=== PATIENT | female | born 1965 | race Caucasian/White ===

== ENCOUNTER → 2020-07-11 | Outpatient (CLI) | payer BC, OTHER ==
[~2020-07-11] MED LIST: ADDE20TA PO; BUPR150T3 PO; CHLO25TA PO; LEVO150T7 PO; SYMB16INH INH; VALS40TA9 PO; VENTAER INH; XANA0.5T PO
[2020-07-11 12:42] LABS: HEMATOCRIT 44.8 % (36.0-47.0); HEMOGLOBIN 14.7 g/dl (12.0-15.5); MEAN CORPUSCULAR HEMOGLOBIN 31.3 pg (27.0-33.0); MEAN CORPUSCULAR HGB CONC 32.8 g/dl (32.0-36.5); MEAN CORPUSCULAR VOLUME 95.3 fl (80.0-96.0); PLATELET COUNT, AUTOMATED 397 10^3/uL (150-450); WHITE BLOOD COUNT 7.3 10^3/uL (4.0-10.0)
[2020-07-11 12:53] LABS: INR 0.92; PROTHROMBIN TIME 12.5 SECONDS (12.5-14.3)
[2020-07-11 13:10] LABS: ALBUMIN 3.9 GM/DL (3.2-5.2); ALT/SGPT 25 U/L (12-78); BILIRUBIN,TOTAL 0.2 MG/DL (0.2-1.0); BLOOD UREA NITROGEN 18 MG/DL (7-18); CALCIUM LEVEL 9.9 MG/DL (8.5-10.1); CARBON DIOXIDE LEVEL 31 MEQ/L (21-32); CHLORIDE LEVEL 103 MEQ/L (98-107); CREATININE FOR GFR 0.79 MG/DL (0.55-1.30); GLOMERULAR FILTRATION RATE > 60.0 (>51); GLUCOSE, FASTING 94 MG/DL (70-100); POTASSIUM SERUM 3.8 MEQ/L (3.5-5.1); SODIUM LEVEL 140 MEQ/L (136-145); TOTAL PROTEIN 7.3 GM/DL (6.4-8.2)
[2020-07-11 13:20] LABS: ERYTHROCYTE SEDIMENTATION RATE 11 mm/hr (0-30)
--- NOTE | 2020-07-11 15:36 | REP ---
INDICATION: RT TOTAL HIP ARTHROPLASTY, LAB 1ST EKG 2ND XR 3RD. COMPARISON: None. TECHNIQUE: PA and lateral chest FINDINGS: The lung wylie are clear. Cardiac size is normal. The arun, mediastinum, and skeletal structures are unremarkable. IMPRESSION: Negative PA chest. <Electronically signed by Job Hartman > 07/11/20 0302
--- NOTE | 2020-07-12 15:49 | ECGEPIP ---
[facility] Test Date: 2020-07-11 Pat Name: HALIMA PARISI Department: Room: - Gender: Female Shoe Caser: : 1965 Requested By: Liam Palacios Order Number: [id number] Reading MD: Ibrahima Bhat Measurements Intervals Ramsay Rate: 91 P: 49 TN: 141 QRS: 93 QRSD: 101 T: 62 QT: 337 QTc: 417 Interpretive Statements SINUS RHYTHM BORDERLINE RIGHT AXIS DEVIATION NONSPECIFIC ST-T ABNORMALITY No prior ECG available for comparison at the time of interpretation. Electronically Signed on 07-12-2020 15:49:15 EST by Ibrahima Bhat
== END ==
LOC: M LAB 12:12
PROVIDERS: ATTEND Orthopaedic Surgery
DX: M16.11 Unilateral primary osteoarthritis, right hip (principal)

== ENCOUNTER → 2020-07-18 | Outpatient (CLI) | payer OTHER ==
[~2020-07-18] MED LIST changes: +ADDE20CA3 PO; +ALPR0.25 PO; +ECOT81TA5 PO; +PERC5TAB12 PO; +WELLTAB40 PO
== END ==
LOC: M LABSMTC 10:24
PROVIDERS: ATTEND Anesthesiology
DX: Z01.812 Encounter for preprocedural laboratory examination (principal); Z11.59 Encounter for screening for other viral diseases

== ENCOUNTER 2020-07-23 06:18 | Inpatient (IN) | payer BC, OTHER ==
--- NOTE | 2020-07-17 17:30 | HPE ---
HISTORY AND PHYSICAL DATE OF ADMISSION: 07/23/2020 CHIEF COMPLAINT: Right hip pain. HISTORY OF PRESENT ILLNESS: Valentina is a pleasant 55-year-old female with progressively worsening right hip pain and stiffness. She has failed to improve with conservative treatment. She has elected for surgery for her continued symptoms. She has pain with weightbearing activities and her activities of daily living. X-rays of her hip are notable for advanced osteoarthritis of the right hip joint. She has consented for a right total hip arthroplasty by Dr. Philip Garcia. Medical optimization was performed by Raji Romero. ALLERGIES: No known drug allergies. CURRENT MEDICATIONS: Synthroid 150 mcg a day, chlorthalidone 25 mg a day and Symbicort 160/4.5 mcg twice a day. PAST MEDICAL HISTORY: High blood pressure and hypothyroidism PAST SURGICAL HISTORY INCLUDES: Left total hip arthroplasty, left ulnar decompression and cholecystectomy. SOCIAL HISTORY: This patient does smoke a half a pack a day, does not drink alcohol. FAMILY HISTORY: Noncontributory. REVIEW OF SYSTEMS: This patient denies chest pain, heart palpations, cough, wheezing, difficulty breathing and shortness of breath. She denies abdominal pain, nausea, vomiting, diarrhea or constipation. She denies recent upper respiratory infection, urinary tract infection symptoms. She does complain of persistent pain in her right hip. PHYSICAL EXAMINATION: General: She is well-nourished, well-developed, in no acute distress, alert female patient. She ambulates with a moderate limp favoring her right lower extremity. She is not using assistive devices. Vital signs: She is 65 inches tall, weighs 245.6 pounds. Temperature 96.4, blood pressure 128/82, pulse 66, respirations of 18. Neck was supple without adenopathy or jugular venous distention (JVD). Lungs were clear to auscultation without rales or wheeze. Heart: Regular rate and rhythm. Abdomen: Bowel sounds are present. Extremities: Examination of the hip revealed intact skin. She had decreased range of motion due to pain and stiffness. The limbs are vascularly intact. LABORATORY DATA: Prothrombin time 12.5, INR 0.92, glucose 94, BUN 18, creatinine 0.79. Sodium 140, potassium 3.8. Complete blood count (CBC) was within normal limits. Sedimentation rate was 11. Chest x-ray showed no acute cardiopulmonary disease processes. Electrocardiogram (EKG) showed sinus rhythm at 91 beats per minute. IMPRESSION: Symptomatic osteoarthritis of the right hip. PLAN: Consented for a right total hip arthroplasty by Dr. Philip Garcia.
[~2020-07-23] VITALS: Ht 162.6 cm; Wt 111.6 kg
[2020-07-23] VITALS (7 sets, daily range): BP systolic 99–129; BP diastolic 56–84
[~2020-07-23 06:18] MED LIST changes: +ACETAMINOPHEN 500 MG TAB PO ONE; -ADDE20CA3 PO; -ALPR0.25 PO; -ECOT81TA5 PO; -PERC5TAB12 PO; -WELLTAB40 PO; +ceFAZolin SOD 2 GM in IV 1 EA IV ONE
[2020-07-23] MEDS ORDERED: MIDAZOLAM INJ 2MG/2ML VIAL (J2250 PER 1MG) As Ordered ONE (06:53)
[2020-07-23] MEDS ORDERED: ROCURONIUM BROMIDE 50 MG/5 ML VIAL As Ordered ONE (06:54)
[2020-07-23] MEDS ORDERED: LIDOCAINE 2% 100MG/5ML SDV (FOR ANES.) As Ordered ONE (06:54)
[2020-07-23] MEDS ORDERED: propofoL 200 MG/20 ML VIAL As Ordered ONE ×2 (06:54→07:00)
[2020-07-23] MEDS ORDERED: fentaNYL 100 MCG/2 ML INJECTION (J3010) As Ordered ONE (06:54)
[2020-07-23] MEDS ORDERED: TRANEXAMIC ACID 100 MG/ML 10ML VIAL As Ordered ONE (07:09)
[2020-07-23] MEDS ORDERED: ceFAZolin 1GM VIAL (J0690 PER 500MG) As Ordered ONE ×2 (07:09→08:05)
[2020-07-23] MEDS ORDERED: ACETAMINOPHEN 1000MG 100ML IV BTL (OFIRMEV) (J0131 PER 10MG) As Ordered ONE (08:14)
[2020-07-23] MEDS: DOCUSATE SODIUM 100MG CAPSULE PO SCH ×2 (09:00→21:57)
[2020-07-23] MEDS ORDERED: ACETAMINOPHEN TAB 650MG DOSE (2X325MG) PO PRN (10:15)
[2020-07-23] MEDS ORDERED: fentaNYL 100 MCG/2 ML INJECTION (J3010) IV PRN (10:15)
[2020-07-23] MEDS ORDERED: oxyCODONE 5MG TAB PO PRN (10:15)
[2020-07-23] MEDS ORDERED: ONDANSETRON 4MG/2ML VIAL IV PRN ×2 (10:15)
[2020-07-23] MEDS ORDERED: MORPHINE 4 MG/ML 1ML VIAL/SYRINGE (J2270) IV PRN (10:15)
[2020-07-23] MEDS ORDERED: LR 1,000 ML IV SCH ×2 (10:15)
[2020-07-23] MEDS ORDERED: PERCOCET 5MG/325MG TAB PO PRN (10:15)
[2020-07-23] MEDS ORDERED: METOCLOPRAMIDE INJ 10MG/2ML VIAL (J2765 PER 1) IV PRN (10:15)
[2020-07-23] MEDS ORDERED: MORPHINE 2 MG/ML 1ML VIAL (J2270) IV PRN ×2 (10:15)
--- NOTE | 2020-07-23 10:19 | REP ---
INDICATION: POST OP EVAL IN PACU Status post arthroplasty. COMPARISON: None. TECHNIQUE: AP and cross-table lateral views. FINDINGS: The patient is status post right hip replacement with normal positioning and appearance to the femoral and acetabular components. Overlying postsurgical changes appreciated. IMPRESSION: Satisfactory right hip replacement radiographs. <Electronically signed by Rigo Gastelum > 07/23/20 1019
[2020-07-23] MEDS: PERCOCET 5MG/325MG TAB PO PRN ×2 (11:17→18:51)
--- NOTE | 2020-07-23 11:59 | RO ---
OPERATIVE NOTE DATE OF OPERATION: 07/23/2020 PREOP DIAGNOSIS: Right hip degenerative arthritis. POSTOP DIAGNOSIS: Right hip degenerative arthritis. PROCEDURE: Right total hip arthroplasty using size 6 Bath standard offset stem with 1.5 neck and 36 mm ceramic ball with 56 mm Gription cup and 36 mm polyethylene neutral liner. Prosthesis was made by [employer], Bath stem. SURGEON: Liam Myers MD MERCHANDISE CARRIER: Agustina Alford ANESTHESIA: Spinal COMPLICATIONS: None. SPECIMENS: Femoral head. ESTIMATED BLOOD LOSS: 200 mL. PROCEDURE: Antibiotics were given intravenously preoperatively. Successful spinal anesthetic was given. She was placed in the lateral decubitus position, right hip uppermost, abdominal area padded especially peroneal nerve and axillary roll utilized. Buckner hip positioner was utilized. The right hip area was carefully prepped and draped in usual sterile fashion. After appropriate time out a longitudinal lateral incision was made for direct lateral approach to the hip. Bovie cautery was used to coagulate crossing vessels down through the deep fatty tissues to the tensor fascia which was then divided in line with the skin incision. We split the gluteus medius anterior one-third, posterior two-third junction. We carefully dissected off the anterior femur and then dislocated the hip anteriorly. Starter reamer was placed in the piriformis fossa followed by the canal-finding reamer and then the lateralizing reamer and then we reamed up to size 6. Femoral neck osteotomy was performed using template and we broached up to size 6. We exposed the acetabulum, performed labral excision 360 degrees, began reaming, began at 48 mm advancing 1 mm increments to 55, 56 trial fit very nicely using extramedullary guide to guide our abduction and version. We copiously irrigated out the hip joint and placed the real Gription cup using the extramedullary guide estimating our version for proper abduction and version. Polyethylene liner was then placed and checked and made sure it was well seated. It is noteworthy that the central hole eliminator was also placed and that fit nicely. We then trialed with #6 broach after copiously irrigating out the femoral canal and she was very stable to flexion, internal rotation and extension and external rotation using 1.5 standard offset neck and there was really minimal if any soft tissue telescoping. Thus I felt that this was the appropriate size component to use. We removed the broach and then placed the real stem after copiously irrigating once again. We reduced the hip after placing ceramic ball on the trunnion after drying it thoroughly and then began closing the wound by closing the gluteus minimus and gluteus medius back anatomically with interrupted #1 PDS sutures, irrigated between layers, closed the tensor fascia with #1 PDS suture and then running Stratafix. Tranexamic acid was placed in the depths of the wound both deep and superficially and deep subdermal tissues were closed with interrupted 2-0 PDS suture, skin was closed with keith, covered by Adaptic dry, sterile bulky dressing. She was then transferred to the recovery room in stable condition. There were no intraoperative complications. Ms. Agustina Alford, my communication assistant, was critical to the success of this difficult procedure by helping with appropriate soft tissue retraction, helped to reduce and relocate the hip several times throughout the surgery, helped to close the wound, helped to prepare the patient amongst many other tasks.
--- NOTE | 2020-07-23 12:21 | CR.PDOC ---
General Date of Consultation: Jul 23, 2020 Referring Provider: Liam Garcia Consultation REASON FOR CONSULTATION/CHIEF COMPLAINT: s/p R hip arthroplasty HISTORY OF PRESENT ILLNESS: 55 yo F with a hx of HTN, hypothyroidism, who underwent a R total hip arthroplasty by Dr. Garcia on 07/23/20. Hospitalist service consulted for medical co-management. Surgery was uneventful. Patient reports doing well post op. She has a good appetite. Denies pain at this time. Does not endorse chest pain, sob, palpitations, fevers, chills, or n/v/d. ALLERGIES: Please see below. HOME MEDICATIONS: Please see below. PAST MEDICAL HISTORY: Hypothyroidism Hypertension PAST SURGICAL HISTORY: Left total hip arthroplasty Left ulnar decompression Cholecystectomy FAMILY HISTORY: Reviewed with patient and no pertinent findings SOCIAL HISTORY: Smokes a pack a day. Denies alcohol use Has illicit drug use REVIEW OF SYSTEMS: CONSTITUTIONAL: patient denies fevers, chills HEENT: patient denies blurred vision, loss of vision, headache,. CARDIOVASCULAR: patient denies chest pain, palpitations. RESPIRATORY: patient denies shortness of breath, cough, hemoptysis. GASTROINTESTINAL: patient denies abdominal pain, n/v/d, blood in stool. GENITOURINARY: patient denies dysuria, discharge. SKIN: patient denies rashes. MUSCULOSKELETAL: patient denies joint pain, neck pain. NEUROLOGICAL: patient denies focal weakness, numbness, seizures. PSYCHIATRIC: patient denies SI/HI. ENDOCRINE: patient denies polyuria, heat intolerance, cold intolerance. HEMATOLOGIC/LYMPHATIC: patient denies easy bruising. PHYSICAL EXAMINATION: VITAL SIGNS: please see below General: NAD, comfortable HEENT: PERRLA, EOMI, sclerae clear Neck: supple, normal ROM, no JVD Respiratory: lungs CTAB, no wheeze, no rales, no crackles CVS: RRR, normal S1, S2, no murmurs Abdo: soft, no masses, no hepatosplenomegaly, BS+, no rebound tenderness Extremities: no edema, pulses 2+ MSK: Surgical Site dressing is clean and intact Neuro: no focal neuro deficits, moving all 4 extremities, CN2-12 intact. Strength 5/5 in all 4 extremities. No nystagmus. Psych: calm, cooperative, AAO x 3 IMAGING: R hip XR (07/23/20): FINDINGS: The patient is status post right hip replacement with normal positioning and appearance to the femoral and acetabular components. Overlying postsurgical changes appreciated. IMPRESSION: Satisfactory right hip replacement radiographs. LABORATORY DATA: Please see below. ASSESSMENT/PLAN: #R total hip arthroplasty: management per ortho, including pain and DVT ppx. Will add bowel regimen. #Hypertension: will hold bp meds for now, BP 99/56. Takes valsartan 40 mg PO daily. Chlorthalidone 25 mg PO daily. can resume on DC. #Hypothyroidism: takes levothyroxine 150 mcg PO daily. #COPD/Asthma: resume symbicort, duonebs prn DVT ppx: patient is on ASA 81 mg BID per primary orthopedics service. Vital Signs/I&O Vital Signs Date Time Temp Pulse Resp B/P (MAP) Pulse Ox O2 Delivery O2 Flow Rate FiO2 07/23/20 11:47 18 07/23/20 11:25 97.5 84 119/71 (87) 94 Room Air Allergies Coded Allergies: No Known Allergies (Unverified , 07/16/20) Home Medications Scheduled Budesonide/Formoterol (Symbicort 160-4.5 Mcg Inhaler) 6 Gm Hfa.aer.ad, 2 PUFF INH DAILY, (Reported) Bupropion Hcl (Bupropion Xl) 150 Mg Tab.er.24h, 300 MG PO DAILY, (Reported) Chlorthalidone (Chlorthalidone) 25 Mg Tablet, 25 MG PO DAILY, (Reported) Dextroamphetamine/Amphetamine (Adderall 20 mg Tablet) 20 Mg Tablet, 20 MG PO DAILY, (Reported) Levothyroxine Sodium (Levothyroxine Sodium) 150 Mcg Tablet, 150 MCG PO DAILY, (Reported) Valsartan (Valsartan) 40 Mg Tablet, 40 MG PO DAILY, (Reported) Scheduled PRN Albuterol Sulfate (Ventolin Hfa) 18 Gm Hfa.aer.ad, 2 PUFFS INH QID PRN for DYSPNEA, #1 (Reported) Alprazolam (Xanax) 0.5 Mg Tablet, 0.25 MG PO TIDP PRN for ANXIETY/AGITATION, (Reported) TED SALAZAR MD Jul 23, 2020 12:20
[2020-07-23 12:39] LABS: HEMATOCRIT 38.8 % (36.0-47.0); HEMOGLOBIN 12.4 g/dl (12.0-15.5); MEAN CORPUSCULAR HEMOGLOBIN 30.3 pg (27.0-33.0); MEAN CORPUSCULAR VOLUME 94.9 fl (80.0-96.0); PLATELET COUNT, AUTOMATED 363 10^3/uL (150-450); RED BLOOD COUNT 4.09 10^6/uL (4.00-5.40); WHITE BLOOD COUNT 12.6 10^3/uL (4.0-10.0)
[2020-07-23 13:15] LABS: ALBUMIN 3.2 GM/DL (3.2-5.2); ALT/SGPT 24 U/L (12-78); BILIRUBIN,TOTAL 0.2 MG/DL (0.2-1.0); BLOOD UREA NITROGEN 13 MG/DL (7-18); CALCIUM LEVEL 8.6 MG/DL (8.5-10.1); CARBON DIOXIDE LEVEL 30 MEQ/L (21-32); CHLORIDE LEVEL 104 MEQ/L (98-107); CREATININE FOR GFR 0.75 MG/DL (0.55-1.30); GLOMERULAR FILTRATION RATE > 60.0 (>51); GLUCOSE, FASTING 105 MG/DL (70-100); PHOSPHORUS LEVEL 3.5 MG/DL (2.5-4.9); POTASSIUM SERUM 3.4 MEQ/L (3.5-5.1); SODIUM LEVEL 138 MEQ/L (136-145); TOTAL PROTEIN 6.2 GM/DL (6.4-8.2)
[2020-07-23] MEDS ORDERED: SENNA 8.6 MG TAB (SENOKOT) PO PRN (14:00)
[2020-07-23] MEDS ORDERED: ALPR0.25 PO (14:03)
[2020-07-23] MEDS ORDERED: ADDE20CA3 PO (14:03)
[2020-07-23] MEDS ORDERED: WELLTAB40 PO (14:03)
[2020-07-23] MEDS: SYMBICORT 160/4.5MCG INHALER 6GM INH SCH ×2 (14:07→20:39)
[2020-07-23] MEDS: IPRATROPIUM 0.5MG/ALBUTEROL 2.5MG INH SOL UD 3ML (DUONEB) NEB SCH ×2 (14:22→20:00)
[2020-07-23] MEDS: ceFAZolin SOD 2 GM in IV 1 EA IV SCH ×2 (15:08→23:39)
[2020-07-24 02:00] VITALS: BP 115/65
[2020-07-24] MEDS: IPRATROPIUM 0.5MG/ALBUTEROL 2.5MG INH SOL UD 3ML (DUONEB) NEB SCH ×3 (02:00→13:45)
[2020-07-24] MEDS: PERCOCET 5MG/325MG TAB PO PRN ×2 (05:13→11:20)
[2020-07-24] MEDS ORDERED: PERC5TAB12 PO (05:55)
[2020-07-24] MEDS ORDERED: ECOT81TA5 PO (05:55)
[2020-07-24 06:00] VITALS: BP 116/65
[2020-07-24] MEDS: SYMBICORT 160/4.5MCG INHALER 6GM INH SCH (06:38)
[2020-07-24 07:05] LABS: HEMATOCRIT 38.8 % (36.0-47.0); HEMOGLOBIN 12.3 g/dl (12.0-15.5); MEAN CORPUSCULAR HEMOGLOBIN 30.3 pg (27.0-33.0); MEAN CORPUSCULAR HGB CONC 31.7 g/dl (32.0-36.5); MEAN CORPUSCULAR VOLUME 95.6 fl (80.0-96.0); PLATELET COUNT, AUTOMATED 340 10^3/uL (150-450); RED BLOOD COUNT 4.06 10^6/uL (4.00-5.40); WHITE BLOOD COUNT 8.5 10^3/uL (4.0-10.0)
[2020-07-24 07:43] LABS: ALBUMIN 3.1 GM/DL (3.2-5.2); ALT/SGPT 24 U/L (12-78); BILIRUBIN,TOTAL 0.5 MG/DL (0.2-1.0); BLOOD UREA NITROGEN 10 MG/DL (7-18); CALCIUM LEVEL 9.2 MG/DL (8.5-10.1); CARBON DIOXIDE LEVEL 33 MEQ/L (21-32); CHLORIDE LEVEL 100 MEQ/L (98-107); CREATININE FOR GFR 0.77 MG/DL (0.55-1.30); GLOMERULAR FILTRATION RATE > 60.0 (>51); GLUCOSE, FASTING 126 MG/DL (70-100); POTASSIUM SERUM 3.3 MEQ/L (3.5-5.1); SODIUM LEVEL 137 MEQ/L (136-145); TOTAL PROTEIN 6.7 GM/DL (6.4-8.2)
[2020-07-24] MEDS ORDERED: POTASSIUM CHLORIDE 10 MEQ SR TABLET PO ONE (08:00)
[2020-07-24] MEDS: ceFAZolin SOD 2 GM in IV 1 EA IV SCH (08:45)
[2020-07-24] MEDS: DOCUSATE SODIUM 100MG CAPSULE PO SCH (08:46)
[2020-07-24] MEDS ORDERED: ASPIRIN 81 MG ENTERIC TAB PO SCH (09:00)
[2020-07-24 10:00] VITALS: BP 112/67
== END 2020-07-24 14:45 | disposition home or self-care (01) | DRG 301 ==
LOC: M OR 06:18 → M MS5PR 10:50
PROVIDERS: ADMIT Orthopaedic Surgery; ATTEND Orthopaedic Surgery
PROC: 0SR904Z Replacement of Right Hip Joint with Ceramic on Polyethylene Synthetic Substitute, Open Approach (ICD-10-PCS; principal; 2020-07-23 07:30)
DX: M16.11 Unilateral primary osteoarthritis, right hip (principal); Z96.643 Presence of artificial hip joint, bilateral; I10 Essential (primary) hypertension; E03.9 Hypothyroidism, unspecified; F17.200 Nicotine dependence, unspecified, uncomplicated; J44.9 Chronic obstructive pulmonary disease, unspecified; R26.89 Other abnormalities of gait and mobility; Z79.899 Other long term (current) drug therapy; Z90.49 Acquired absence of other specified parts of digestive tract